=== PATIENT | female | born 1935 | race Caucasian/White ===

== ENCOUNTER 2016-04-15 10:43 | Emergency (ER) | payer MEDICARE ==
[~2016-04-15] VITALS: Ht 137.2 cm; Wt 52.1 kg
[~2016-04-15 10:43] MED LIST: BUPR150T PO; FAMO20TA2 PO; LAMO150 PO; METO25CR PO; VITA20003 PO; Z.0.WALKERFRONT
[2016-04-15 11:21] VITALS: BP 151/81; PULSE 72; RESP 16; TEMP 98.3; O2SAT 100
[2016-04-15] MEDS ORDERED: CETI10CH CHEW (11:40)
[2016-04-15] MEDS ORDERED: VITA200013 PO (11:40)
[2016-04-15] MEDS ORDERED: CITA10TA4 PO (11:40)
[2016-04-15] MEDS ORDERED: PRAV20TA2 PO (11:40)
[2016-04-15] MEDS ORDERED: LISI-519 PO (11:40)
[2016-04-15] MEDS ORDERED: MIRA25TA PO (11:40)
[2016-04-15] MEDS ORDERED: FAMO1TAB37 PO (11:40)
[2016-04-15] MEDS ORDERED: DONE10TA7 PO (11:40)
[2016-04-15] MEDS ORDERED: LAMO150T PO (11:40)
[2016-04-15] MEDS ORDERED: BUPROPION PO (11:40)
[2016-04-15] MEDS ORDERED: METO25TA3 PO (11:40)
[2016-04-15] MEDS ORDERED: SODIUM CHLOR 0.9% 1000 ML INJ 1,000 ML IV SCH (11:45)
[2016-04-15] MEDS ORDERED: ONDANSETRON HCL 4 MG/2 ML VIAL IV PUSH ONE (11:45)
--- NOTE | 2016-04-15 11:47 | PD ---
HPI Chief Complaint: Abdominal Pain Time Seen by Provider: 11:31 Travel History International Travel<30 days: No Contact w/Intl Traveler<30days: No Traveled to known affect area: No History of Present Illness HPI This 81-year-old female presents with complaint of vomiting and mid abdominal pain. She says she has been vomiting off and on for the past week. She has not had any fever. She went to the [facility] in [place] and was diagnosed with a urinary tract infection. She has been on Macrobid. PFSH Past Medical History Blood Disorders: No Anxiety: No Depression: Yes Heart Rhythm Problems: No Cancer: Yes (skin cancer) Cardiovascular Problems: Yes (htn on meds) High Cholesterol: Yes Chemotherapy: No Chest Pain: Yes Congestive Heart Failure: No Endocrine: No Genitourinary: No Hypertension: Yes Immune Disorder: No Musculoskeletal: Yes Neurologic: No Psychiatric: Yes (bipolar, dementia) Reproductive: No Respiratory: No Radiation Therapy: No ?: Not Social History Alcohol Use: No Tobacco Use: No Substance Use: No Allergies-Medications (Allergen,Severity, Reaction): Coded Allergies: Sulfa (Verified Allergy, Severe, 04/15/16) Reported Meds & Prescriptions Reported Meds & Active Scripts Active Reported Lamotrigine 150 Mg Tab 150 Mg PO HS Pravastatin 20 Mg Tab 25 Mg PO HS Metoprolol Tartrate 25 Mg Tab 25 Mg PO HS Donepezil 10 Mg Tab 10 Mg PO HS Myrbetriq (Mirabegron) 25 Mg Tab 25 Mg PO DAILY Cetirizine (Cetirizine HCl) 10 Mg Chew 10 Mg CHEW DAILY Lisinopril 5 Mg Tab 5 Mg PO DAILY Vitamin D (Cholecalciferol) 2,000 Unit Cap 2,000 Units PO DAILY [Bupepropion Hcl] 300 Mg PO DAILY Citalopram (Citalopram Hydrobromide) 10 Mg Tab 10 Mg PO DAILY Pepcid (Famotidine) 20 Mg Tab 20 Mg PO DAILY Review of Systems General / Constitutional: No: Fever, Chills Eyes: No: Diploplia, Blurred Vision HENT: No: Headaches Cardiovascular: No: Chest Pain or Discomfort Respiratory: No: Cough Gastrointestinal: Positive: Nausea, Vomiting, Abdominal Pain Genitourinary: No: Frequency, Dysuria Musculoskeletal: No: Myalgias Physical Exam Narrative GENERAL: Well-developed female SKIN: Warm and dry. HEAD: Atraumatic. Normocephalic. EYES: Pupils equal and round. No scleral icterus. No injection or drainage. ENT: No nasal bleeding or discharge. Mucous membranes pink and moist. NECK: Trachea midline. No JVD. CARDIOVASCULAR: Regular rate and rhythm. No murmur appreciated. RESPIRATORY: No accessory muscle use. Clear to auscultation. Breath sounds equal bilaterally. GASTROINTESTINAL: Abdomen soft, non-tender, nondistended. Hepatic and splenic margins not palpable. MUSCULOSKELETAL: No obvious deformities. No clubbing. No cyanosis. No edema. NEUROLOGICAL: Awake and alert. No obvious cranial nerve deficits. Motor grossly within normal limits. Normal speech. PSYCHIATRIC: Appropriate mood and affect; insight and judgment normal. Data Data Last Documented VS Vital Signs Date Time Temp Pulse Resp B/P Pulse Ox O2 Delivery O2 Flow Rate FiO2 04/15/16 14:35 95 20 115/67 96 04/15/16 11:21 98.3 Orders Complete Blood Count With Diff (04/15/16 11:37) Comprehensive Metabolic Panel (04/15/16 11:37) Lipase (04/15/16 11:37) Urinalysis - C+S If Indicated (04/15/16 11:37) Abdomen, Flat & Upright (04/15/16 11:37) Sodium Chlor 0.9% 1000 Ml Inj (Ns 1000 M (04/15/16 11:45) Ondansetron Inj (Zofran Inj) (04/15/16 11:45) Labs Laboratory Tests Test 04/15/16 04/15/16 11:40 13:30 White Blood Count 6.2 TH/MM3 Red Blood Count 4.26 MIL/MM3 Hemoglobin 11.1 GM/DL Hematocrit 34.9 % Mean Corpuscular Volume 81.8 FL Mean Corpuscular Hemoglobin 26.0 PG Mean Corpuscular Hemoglobin 31.8 % Concent Red Cell Distribution Width 14.2 % Platelet Count 250 TH/MM3 Mean Platelet Volume 7.1 FL Neutrophils (%) (Auto) 66.3 % Lymphocytes (%) (Auto) 22.9 % Monocytes (%) (Auto) 5.5 % Eosinophils (%) (Auto) 4.5 % Basophils (%) (Auto) 0.8 % Neutrophils # (Auto) 4.2 TH/MM3 Lymphocytes # (Auto) 1.4 TH/MM3 Monocytes # (Auto) 0.3 TH/MM3 Eosinophils # (Auto) 0.3 TH/MM3 Basophils # (Auto) 0.0 TH/MM3 CBC Comment DIFF FINAL Differential Comment Sodium Level 141 MEQ/L Potassium Level 3.8 MEQ/L Chloride Level 106 MEQ/L Carbon Dioxide Level 25.9 MEQ/L Anion Gap 9 MEQ/L Blood Urea Nitrogen 21 MG/DL Creatinine 0.95 MG/DL Estimat Glomerular Filtration 57 ML/MIN Rate Random Glucose 89 MG/DL Calcium Level 9.3 MG/DL Total Bilirubin 0.3 MG/DL Aspartate Amino Transf 36 U/L (AST/SGOT) Alanine Aminotransferase 44 U/L (ALT/SGPT) Alkaline Phosphatase 158 U/L Total Protein 7.0 GM/DL Albumin 3.5 GM/DL Lipase 207 U/L Urine Collection Type CLEAN CATCH Urine Color STRAW Urine Turbidity CLEAR Urine pH 6.0 Urine Specific [place] 1.011 Urine Protein NEG mg/dL Urine Glucose (UA) NEG mg/dL Urine Ketones NEG mg/dL Urine Occult Blood SMALL Urine Nitrite NEG Urine Bilirubin NEG Urine Leukocyte Esterase NEG Urine RBC 4-9 /hpf Urine Squamous Epithelial 0-5 /hpf Cells Urine Amorphous Sediment FEW Microscopic Urinalysis Comment CULT NOT INDICATED Urine Collection Time 1330 MDM Medical Decision Making Medical Screen Exam Complete: Yes Emergency Medical Condition: Yes Medical Record Reviewed: Yes Differential Diagnosis Differential includes gastritis, recurrent UTI Narrative Course Exam does not show any focal tenderness or guarding. White count is normal. X- ray shows nonspecific bowel gas pattern. Patient has been given IV fluids and Zofran and says she feels better. She is stable for discharge Diagnosis Primary Impression: Acute gastritis Qualified Code: K29.00 - Acute gastritis without hemorrhage, unspecified gastritis type Additional Instructions: Use Zofran as needed Disposition: 01 DISCHARGE HOME Condition: Stable Cristian Pitts MD Apr 15, 2016 11:47
[2016-04-15 11:58] LABS: AUTOMATED NEUTROPHIL # 4.2 TH/MM3 (1.8-7.7); BASOPHIL % 0.8 % (0.0-2.0); EOSINOPHIL # 0.3 TH/MM3 (0-0.4); EOSINOPHIL % 4.5 % (0.0-4.0); HEMATOCRIT 34.9 % (35.0-46.0); HEMO FLAGS DIFF FINAL; LYMPH % 22.9 % (9.0-44.0); LYMPHOCYTE # 1.4 TH/MM3 (1.0-4.8); MEAN CELL VOLUME 81.8 FL (80.0-100.0); MEAN CORPUSCULAR HGB CONC 31.8 % (32.0-36.0); MONO % 5.5 % (0.0-8.0); NEUT % 66.3 % (16.0-70.0); PLATELET COUNT 250 TH/MM3 (150-450); RED BLOOD COUNT 4.26 MIL/MM3 (4.00-5.30); RED CELL DISTRIBUTION WIDTH 14.2 % (11.6-17.2); WHITE BLOOD COUNT 6.2 TH/MM3 (4.0-11.0)
[2016-04-15 12:06] LABS: CHLORIDE 106 MEQ/L (98-107); POTASSIUM 3.8 MEQ/L (3.5-5.1); SODIUM (NA) 141 MEQ/L (136-145)
[2016-04-15 12:10] LABS: ANION GAP 9 MEQ/L (5-15); BICARBONATE 25.9 MEQ/L (21.0-32.0); BLOOD UREA NITROGEN 21 MG/DL (7-18)
[2016-04-15 12:13] LABS: ALT (GPT) 44 U/L (10-53); AST (GOT) 36 U/L (15-37); GLOMERULAR FILTRATION RATE 57 ML/MIN (>89)
[2016-04-15 12:14] LABS: TOTAL BILIRUBIN ADULT 0.3 MG/DL (0.2-1.0)
[2016-04-15 12:16] LABS: ALKALINE PHOSPHATASE 158 U/L (45-117)
[2016-04-15 12:47] VITALS: BP 125/65; PULSE 86; RESP 20; O2SAT 100
--- NOTE | 2016-04-15 12:59 | RADHPO ---
EXAM DATE/TIME: 04/15/2016 12:24 [facility] COMPARISON: No previous studies available for comparison. INDICATIONS : Abdomen pain , vomiting. MEDICAL HISTORY : None. SURGICAL HISTORY : None. ENCOUNTER: Initial ACUITY: 1 week PAIN SCORE: 2/10 LOCATION: Bilateral upper quadrant and lower quadrant abdomen FINDINGS: There is no evidence of pneumoperitoneum. Intestinal gas pattern is nonspecific and benign with gas a nd stool present in multiple nondilated bowel loops. Scattered flecks of radiodense material are like ly ingested medication. A density over the right upper quadrant may be a slight gallstones. There are degenerative changes in the spine with right convex scoliosis. CONCLUSION: Nonspecific benign abdomen appearance. Dagoberto Sandoval MD on April 15, 2016 at 12:55 Board Certified Radiologist. This report was verified electronically.
[2016-04-15 13:40] VITALS: BP 128/62; PULSE 100; RESP 18; O2SAT 95
[2016-04-15 13:51] LABS: BLOOD, URINE SMALL (NEG); GLUCOSE,URINE NEG (NEG); KETONE, URINE NEG (NEG); NITRITE,URINE NEG (NEG)
[2016-04-15 14:05] LABS: METHOD OF COLLECTION CLEAN CATCH; URINE COLOR STRAW (YELLW/STRAW)
[2016-04-15 14:06] LABS: COMMENT (UR) CULT NOT INDICATED; CULTURE IF INDICATED CULT NOT INDICATED; SQUAMOUS EPITHELIAL CELL URINE 0-5 /hpf (0-5)
[2016-04-15 14:35] VITALS: BP 115/67; PULSE 95; RESP 20; O2SAT 96
[2016-04-15] MEDS ORDERED: ZOFR4TAB3 SL (17:16)
[2016-04-16] MEDS ORDERED: ZOFR4TAB3 SL (09:30)
[2016-04-17] MEDS ORDERED: BUPR300T PO (09:14)
[2016-04-21] MEDS ORDERED: ATOR20TA15 PO (14:54)
[2016-04-21] MEDS ORDERED: GABA600T PO (14:55)
[2016-05-21] MEDS ORDERED: ZOFR4TAB3 SL (12:09)
[2016-07-28] MEDS ORDERED: CETI10CH CHEW (15:12)
[2016-08-09] MEDS ORDERED: CETI10 PO (11:44)
[2016-09-01] MEDS ORDERED: GABA600T PO (16:42)
== END 2016-04-15 15:07 | disposition home or self-care (01) ==
LOC: PHED 10:43
DX: E78.00 Pure hypercholesterolemia, unspecified (principal); I10 Essential (primary) hypertension; K29.00 Acute gastritis without bleeding
CPT/HCPCS: 74020; 80053; 81001; 83690; 85025; 96374; 99284; J2405; J7030

== ENCOUNTER 2016-05-24 11:54 | Emergency (ER) | payer MEDICARE ==
[~2016-05-24] VITALS: Ht 139.7 cm; Wt 47.0 kg
[~2016-05-24 11:54] MED LIST changes: +ATOR20TA15 PO; -BUPR150T PO; +BUPR300T PO; +CETI10CH CHEW; +CITA10TA4 PO; +DONE10TA7 PO; +FAMO1TAB37 PO; -FAMO20TA2 PO; +GABA600T PO; -LAMO150 PO; +LAMO150T PO; +LISI-519 PO; -METO25CR PO; +METO25TA3 PO; +MIRA25TA PO; +VITA200013 PO; -VITA20003 PO; -Z.0.WALKERFRONT; +ZOFR4TAB3 SL
[2016-05-24 12:17] VITALS: BP 140/102; PULSE 107; RESP 16; TEMP 98.2; O2SAT 98
[2016-05-24] MEDS ORDERED: PRAV40TA2 PO (12:33)
[2016-05-24] MEDS ORDERED: ONDANSETRON HCL 4 MG/2 ML VIAL IV PUSH ONE (12:45)
[2016-05-24] MEDS ORDERED: SODIUM CHLOR 0.9% 1000 ML INJ 1,000 ML IV SCH (12:45)
--- NOTE | 2016-05-24 12:56 | PD ---
HPI Chief Complaint: Dizziness Time Seen by Provider: 12:36 Travel History International Travel<30 days: No Contact w/Intl Traveler<30days: No Traveled to known affect area: No History of Present Illness HPI 81-year-old female complains of dizziness, poor appetite, congestion, body ache and nausea. Patient states that the symptoms started a week ago and has been persistent since then. Patient states that she has mild aching headache. Patient denies any visual change. Patient denies any neck pain. Patient denies any chest pain or shortness of breath. Patient denies abdominal pain. Patient states that she had dysuria and frequency for the past several days. Patient denies any focal weakness or numbness of extremity. Patient states that she has chronic aching pain, chest abdomen and back and is not new. PFSH Past Medical History Blood Disorders: No Bipolar Disorder: Yes Anxiety: No Depression: Yes Heart Rhythm Problems: No Cancer: Yes (skin cancer) Cardiovascular Problems: Yes (htn on meds didnt take today) High Cholesterol: Yes Chemotherapy: No Chest Pain: Yes Congestive Heart Failure: No Dementia: Yes Endocrine: No Genitourinary: No Hypertension: Yes Immune Disorder: No Musculoskeletal: Yes Neurologic: No Psychiatric: Yes (bipolar, dementia) Reproductive: No Respiratory: Yes Radiation Therapy: No ?: Not Past Surgical History Other Surgery: No Social History Alcohol Use: No Tobacco Use: No Substance Use: No Allergies-Medications (Allergen,Severity, Reaction): Coded Allergies: Sulfa (Verified Allergy, Severe, 05/24/16) Reported Meds & Prescriptions Reported Meds & Active Scripts Active Macrobid (Nitrofurantoin Monoh/Nitrofur Macro) 100 Mg Cap 100 Mg PO BID Zofran Odt (Ondansetron Odt) 4 Mg Tab 4 Mg SL Q8HR PRN Reported Pravastatin 40 Mg Tab 40 Mg PO DAILY Gabapentin 600 Mg Tab 600 Mg PO HS Atorvastatin (Atorvastatin Calcium) 20 Mg Tab 20 Mg PO HS Bupropion HCl ER 24 HR (Bupropion HCl) 300 Mg Tab 300 Mg PO DAILY Lamotrigine 150 Mg Tab 150 Mg PO HS Metoprolol Tartrate 25 Mg Tab 25 Mg PO HS Donepezil 10 Mg Tab 10 Mg PO HS Myrbetriq (Mirabegron) 25 Mg Tab 25 Mg PO DAILY Cetirizine (Cetirizine HCl) 10 Mg Chew 10 Mg CHEW DAILY Lisinopril 5 Mg Tab 5 Mg PO DAILY Vitamin D (Cholecalciferol) 2,000 Unit Cap 2,000 Units PO DAILY Citalopram (Citalopram Hydrobromide) 10 Mg Tab 10 Mg PO DAILY Pepcid (Famotidine) 20 Mg Tab 20 Mg PO DAILY Review of Systems General / Constitutional: No: Fever Eyes: No: Visual changes HENT: Positive: Headaches, Lightheadedness Cardiovascular: No: Chest Pain or Discomfort Respiratory: No: Shortness of Breath Gastrointestinal: Positive: Nausea, No: Abdominal Pain Genitourinary: Positive: Frequency, Dysuria Musculoskeletal: No: Pain Skin: No Rash Neurologic: No: Weakness Psychiatric: No: Depression Endocrine: No: Polydipsia Hematologic/Lymphatic: No: Easy Bruising Physical Exam Narrative GENERAL: Well-nourished, well-developed patient. SKIN: Warm and dry. HEAD: Normocephalic. EYES: No scleral icterus. No injection or drainage. NECK: Supple, trachea midline. No JVD or lymphadenopathy. CARDIOVASCULAR: Regular rate and rhythm without murmurs, gallops, or rubs. RESPIRATORY: Breath sounds equal bilaterally. No accessory muscle use. GASTROINTESTINAL: Abdomen soft, non-tender, nondistended. MUSCULOSKELETAL: No cyanosis, or edema. BACK: Nontender without obvious deformity. No CVA tenderness. Neurologic exam normal. Data Data Last Documented VS Vital Signs Date Time Temp Pulse Resp B/P Pulse Ox O2 Delivery O2 Flow Rate FiO2 05/24/16 13:04 96 Room Air 05/24/16 12:17 98.2 107 16 140/102 Orders Complete Blood Count With Diff (05/24/16 12:43) Comprehensive Metabolic Panel (05/24/16 12:43) Prothrombin Time / Inr (Pt) (05/24/16 12:43) Act Partial Throm Time (Ptt) (05/24/16 12:43) Urinalysis - C+S If Indicated (05/24/16 12:43) Thyroid Stimulating Hormone (05/24/16 12:43) Influenzae A/B Antigen (05/24/16 12:43) Chest, Single Ap (05/24/16 12:43) Iv Access Insert/Monitor (05/24/16 12:43) Ecg Monitoring (05/24/16 12:43) Oximetry (05/24/16 12:43) Sodium Chlor 0.9% 1000 Ml Inj (Ns 1000 M (05/24/16 12:45) Ondansetron Inj (Zofran Inj) (05/24/16 12:45) Urine Culture (05/24/16 13:34) Ceftriaxone Inj (Rocephin Inj) (05/24/16 14:30) Sodium Chlor 0.9% 1000 Ml Inj (Ns 1000 M (05/24/16 14:30) Labs Laboratory Tests Test 05/24/16 05/24/16 13:00 13:34 White Blood Count 4.7 TH/MM3 Red Blood Count 5.25 MIL/MM3 Hemoglobin 13.9 GM/DL Hematocrit 42.7 % Mean Corpuscular Volume 81.3 FL Mean Corpuscular Hemoglobin 26.4 PG Mean Corpuscular Hemoglobin 32.5 % Concent Red Cell Distribution Width 14.8 % Platelet Count 214 TH/MM3 Mean Platelet Volume 7.4 FL Neutrophils (%) (Auto) 56.0 % Lymphocytes (%) (Auto) 26.8 % Monocytes (%) (Auto) 15.5 % Eosinophils (%) (Auto) 0.7 % Basophils (%) (Auto) 1.0 % Neutrophils # (Auto) 2.7 TH/MM3 Lymphocytes # (Auto) 1.3 TH/MM3 Monocytes # (Auto) 0.7 TH/MM3 Eosinophils # (Auto) 0.0 TH/MM3 Basophils # (Auto) 0.0 TH/MM3 CBC Comment DIFF FINAL Differential Comment Prothrombin Time 10.3 SEC Prothromb Time International 0.9 RATIO Ratio Activated Partial 26.4 SEC Thromboplast Time Sodium Level 141 MEQ/L Potassium Level 3.9 MEQ/L Chloride Level 107 MEQ/L Carbon Dioxide Level 21.6 MEQ/L Anion Gap 12 MEQ/L Blood Urea Nitrogen 28 MG/DL Creatinine 1.40 MG/DL Estimat Glomerular Filtration 36 ML/MIN Rate Random Glucose 96 MG/DL Calcium Level 9.2 MG/DL Total Bilirubin 0.5 MG/DL Aspartate Amino Transf 40 U/L (AST/SGOT) Alanine Aminotransferase 35 U/L (ALT/SGPT) Alkaline Phosphatase 223 U/L Total Protein 7.9 GM/DL Albumin 3.7 GM/DL Thyroid Stimulating Hormone 1.470 uIU/ML 3rd Gen Urine Collection Type VOIDED Urine Color DARK-YELLOW Urine Turbidity CLEAR Urine pH 5.5 Urine Specific [place] 1.025 Urine Protein 100 mg/dL Urine Glucose (UA) NEG mg/dL Urine Ketones 15 mg/dL Urine Occult Blood MOD Urine Nitrite NEG Urine Bilirubin NEG Urine Leukocyte Esterase SMALL Urine RBC 4-9 /hpf Urine WBC 9-14 /hpf Urine WBC Clumps FEW Urine Squamous Epithelial 6-8 /hpf Cells Urine Transitional Epithelial 0-2 /hpf Cells Urine Bacteria FEW /hpf Urine Mucus FEW /lpf Microscopic Urinalysis Comment CULTURE INDICATED MDM Medical Decision Making Medical Screen Exam Complete: Yes Emergency Medical Condition: Yes Interpretation(s) Last Impressions Chest X-Ray 05/24/16 1243 Signed Impressions: Service Date/Time: Tuesday, May 24, 2016 13:05 - CONCLUSION: No acute disease. Simone Yepez MD 1416 p.m. CBC within normal limit. CMP within normal limit. BUN 28. Creatinine 1.4. Alkaline phosphatase 223. UA positive WBC and bacteria. Influenza AB antigen negative Differential Diagnosis Differential diagnosis including viral syndrome, vertigo, UTI, pyelonephritis, electrolyte abnormality, dehydration, sepsis. Narrative Course 81-year-old female with headache, dizziness, congestion, body ache, dysuria and frequency, and nausea. Normal saline solution 1 L IV bolus. Zofran 4 mg IV. Rocephin 1 g IV given. Diagnosis Primary Impression: UTI (urinary tract infection) Qualified Code: N30.00 - Acute cystitis without hematuria Additional Impressions: Viral syndrome Dehydration Renal insufficiency Patient Instructions: General Instructions Additional Instructions: Take medications as directed. Follow-up with personal physician. Encourage by mouth fluid. Return if persistent problem or worse. Med/Other Pt SpecificInfo: Prescription(s) given Scripts Ondansetron Odt (Zofran Odt)4 Mg Tab4 Mg SL Q6HR PRN (Nausea/Vomiting) #10 TAB Prov:Ishaan Garcia MD 05/24/16 Nitrofurantoin Monohydrate Macrocrystals (Macrobid)100 Mg [id number] Mg PO BID #14 CAP Ref 0 Prov:Ishaan Garcia MD 05/24/16 Disposition: 01 DISCHARGE HOME Condition: Stable Ishaan Garcia MD May 24, 2016 12:56
[2016-05-24 13:04] VITALS: O2SAT 96
[2016-05-24 13:12] LABS: AUTOMATED NEUTROPHIL # 2.7 TH/MM3 (1.8-7.7); EOSINOPHIL % 0.7 % (0.0-4.0); HEMATOCRIT 42.7 % (35.0-46.0); HEMO FLAGS DIFF FINAL; LYMPH % 26.8 % (9.0-44.0); LYMPHOCYTE # 1.3 TH/MM3 (1.0-4.8); MEAN CELL VOLUME 81.3 FL (80.0-100.0); MEAN CORPUSCULAR HEMOGLOBIN 26.4 PG (27.0-34.0); MEAN CORPUSCULAR HGB CONC 32.5 % (32.0-36.0); MONO % 15.5 % (0.0-8.0); PLATELET COUNT 214 TH/MM3 (150-450); RED BLOOD COUNT 5.25 MIL/MM3 (4.00-5.30); RED CELL DISTRIBUTION WIDTH 14.8 % (11.6-17.2); WHITE BLOOD COUNT 4.7 TH/MM3 (4.0-11.0)
[2016-05-24 13:21] LABS: CHLORIDE 107 MEQ/L (98-107); POTASSIUM 3.9 MEQ/L (3.5-5.1); SODIUM (NA) 141 MEQ/L (136-145)
[2016-05-24 13:24] LABS: APTT (PATIENT) 26.4 SEC (24.3-30.1); INTERNATIONAL NORMALIZED RATIO 0.9 RATIO; PROTHROMBIN TIME - PATIENT 10.3 SEC (9.8-11.6)
[2016-05-24 13:26] LABS: ANION GAP 12 MEQ/L (5-15); BICARBONATE 21.6 MEQ/L (21.0-32.0); BLOOD UREA NITROGEN 28 MG/DL (7-18)
[2016-05-24 13:29] LABS: ALT (GPT) 35 U/L (10-53); AST (GOT) 40 U/L (15-37); GLOMERULAR FILTRATION RATE 36 ML/MIN (>89)
[2016-05-24 13:30] LABS: TOTAL BILIRUBIN ADULT 0.5 MG/DL (0.2-1.0)
[2016-05-24 13:32] LABS: ALKALINE PHOSPHATASE 223 U/L (45-117)
--- NOTE | 2016-05-24 13:35 | RADHPO ---
EXAM DATE/TIME: 05/24/2016 13:05 [facility] COMPARISON: No previous studies available for comparison. INDICATIONS : Short of Breath MEDICAL HISTORY : None. SURGICAL HISTORY : None. ENCOUNTER: Initial ACUITY: 3 days PAIN SCORE: 0/10 LOCATION: Bilateral chest FINDINGS: A single view of the chest demonstrates the lungs to be symmetrically aerated without evidence of mas s, infiltrate or effusion. Atherosclerotic calcifications are present in the aorta. There are overlyi ng electrocardiogram leads. The cardiomediastinal contours are unremarkable. Osseous structures are intact. CONCLUSION: No acute disease. Simone Yepez MD on May 24, 2016 at 13:33 Board Certified Radiologist. This report was verified electronically.
[2016-05-24 13:57] LABS: GLUCOSE,URINE NEG (NEG); KETONE, URINE 15 mg/dL (NEG); NITRITE,URINE NEG (NEG); PH, URINE 5.5 (5.0-8.5)
[2016-05-24 14:09] LABS: BLOOD, URINE MOD (NEG)
[2016-05-24 14:12] LABS: METHOD OF COLLECTION VOIDED; MUCUS URINE FEW /lpf (OCC); URINE COLOR DARK-YELLOW (YELLW/STRAW)
[2016-05-24 14:14] LABS: BACTERIA, URINE FEW /hpf; COMMENT (UR) CULTURE INDICATED; CULTURE IF INDICATED CULTURE INDICATED; TRANSITIONAL EPI CELLS, URINE 0-2 /hpf
[2016-05-24] MEDS ORDERED: MACR100C2 PO (14:22)
[2016-05-24] MEDS ORDERED: SODIUM CHLOR 0.9% 1000 ML INJ 1,000 ML IV ONE (14:30)
[2016-05-24] MEDS ORDERED: cefTRIAXone INJ 1,000 MG in SODIUM CHLORIDE 0.9% INJ 100 ML IV ONE (14:30)
[2016-05-24] MEDS ORDERED: ZOFR4TAB3 SL (14:36)
[2016-05-24 15:48] VITALS: BP 135/67
[2016-07-28] MEDS ORDERED: CETI10CH CHEW (15:12)
[2016-08-09] MEDS ORDERED: CETI10 PO (11:44)
[2016-09-01] MEDS ORDERED: GABA600T PO (16:42)
== END 2016-05-24 15:50 | disposition home or self-care (01) ==
LOC: PHED 11:54
DX: N30.00 Acute cystitis without hematuria (principal); B34.9 Viral infection, unspecified; E86.0 Dehydration; N28.9 Disorder of kidney and ureter, unspecified; R63.0 Anorexia; M79.1 Myalgia; R11.0 Nausea; R51 Headache; I10 Essential (primary) hypertension; E78.00 Pure hypercholesterolemia, unspecified; F03.90 Unspecified dementia, unspecified severity, without behavioral disturbance, psychotic disturbance, mood disturbance, and anxiety; Z87.39 Personal history of other diseases of the musculoskeletal system and connective tissue; Z86.59 Personal history of other mental and behavioral disorders; Z86.79 Personal history of other diseases of the circulatory system; Z85.828 Personal history of other malignant neoplasm of skin; Z87.09 Personal history of other diseases of the respiratory system
CPT/HCPCS: 71010; 80053; 81001; 84443; 85025; 85610; 85730; 87086; 87804; 96361; 96365; 96375; 99284; J0696; J2405; J7030

== ENCOUNTER 2016-05-27 09:44 | Emergency (ER) | payer MEDICARE ==
[~2016-05-27] VITALS: Ht 144.8 cm; Wt 45.0 kg
[2016-05-27] VITALS (10 sets, daily range): BP systolic 150–208; BP diastolic 70–107; PULSE 72–104; RESP 16–24; TEMP 97.8–98.1; O2SAT 9–99
[~2016-05-27 09:44] MED LIST changes: +MACR100C2 PO; +PRAV40TA2 PO
[2016-05-27] MEDS ORDERED: SODIUM CHLOR 0.9% 1000 ML INJ 1,000 ML IV ONE (11:00)
--- NOTE | 2016-05-27 11:01 | PD ---
HPI Chief Complaint: Medical Clearance Time Seen by Provider: 10:53 Travel History International Travel<30 days: No Contact w/Intl Traveler<30days: No Traveled to known affect area: No History of Present Illness HPI 81-year-old female was brought in by her for confusion, combative, diffuse take her medications, insomnia. Patient's states that the symptoms started about 10 days ago and got worse for the past few days. Patient 's reported no fever, vomiting diarrhea. Patient was seen in emergency room 3 days ago and diagnosis UTI and dehydration and acute kidney injury. Patient was given IV fluid and prescription for Macrodantin. Patient diffuse take the medication since then. Patient denies any headache. Patient states that she has history of chronic chest pain abdominal pain back pain is not new. Patient denies any focal weakness or numbness of extremity. Patient was seen by personal physician and referred to see a psychiatrist however has not seen psychiatrist yet. Patient's states the patient was voicing suicidal ideation at home. Patient has history of hypertension, dyslipidemia, bipolar disorder, dementia. PFSH Past Medical History Blood Disorders: No Bipolar Disorder: Yes Anxiety: No Depression: Yes Heart Rhythm Problems: No Cancer: Yes (skin cancer) Cardiovascular Problems: Yes (htn on meds didnt take today) High Cholesterol: Yes Chemotherapy: No Chest Pain: Yes Congestive Heart Failure: No Dementia: Yes Endocrine: No Genitourinary: No Hypertension: Yes Immune Disorder: No Musculoskeletal: Yes Neurologic: No Psychiatric: Yes (bipolar, dementia) Reproductive: No Respiratory: Yes Radiation Therapy: No Past Surgical History Other Surgery: No Social History Alcohol Use: No Tobacco Use: No Substance Use: No Allergies-Medications (Allergen,Severity, Reaction): Coded Allergies: Sulfa (Verified Allergy, Severe, 05/24/16) Reported Meds & Prescriptions Reported Meds & Active Scripts Active Zofran Odt (Ondansetron Odt) 4 Mg Tab 4 Mg SL Q6HR PRN Macrobid (Nitrofurantoin Monoh/Nitrofur Macro) 100 Mg Cap 100 Mg PO BID Zofran Odt (Ondansetron Odt) 4 Mg Tab 4 Mg SL Q8HR PRN Reported Pravastatin 40 Mg Tab 40 Mg PO DAILY Gabapentin 600 Mg Tab 600 Mg PO HS Atorvastatin (Atorvastatin Calcium) 20 Mg Tab 20 Mg PO HS Bupropion HCl ER 24 HR (Bupropion HCl) 300 Mg Tab 300 Mg PO DAILY Lamotrigine 150 Mg Tab 150 Mg PO HS Metoprolol Tartrate 25 Mg Tab 25 Mg PO HS Donepezil 10 Mg Tab 10 Mg PO HS Myrbetriq (Mirabegron) 25 Mg Tab 25 Mg PO DAILY Cetirizine (Cetirizine HCl) 10 Mg Chew 10 Mg CHEW DAILY Lisinopril 5 Mg Tab 5 Mg PO DAILY Vitamin D (Cholecalciferol) 2,000 Unit Cap 2,000 Units PO DAILY Citalopram (Citalopram Hydrobromide) 10 Mg Tab 10 Mg PO DAILY Pepcid (Famotidine) 20 Mg Tab 20 Mg PO DAILY Review of Systems General / Constitutional: No: Fever Eyes: No: Visual changes HENT: No: Headaches Cardiovascular: No: Chest Pain or Discomfort Respiratory: No: Shortness of Breath Gastrointestinal: No: Abdominal Pain Genitourinary: No: Dysuria Musculoskeletal: No: Pain Skin: No Rash Neurologic: No: Weakness Psychiatric: No: Depression Endocrine: No: Polydipsia Hematologic/Lymphatic: No: Easy Bruising Physical Exam Narrative GENERAL: Well-nourished, well-developed patient. SKIN: Warm and dry. HEAD: Normocephalic. EYES: No scleral icterus. No injection or drainage. NECK: Supple, trachea midline. No JVD or lymphadenopathy. CARDIOVASCULAR: Regular rate and rhythm without murmurs, gallops, or rubs. RESPIRATORY: Breath sounds equal bilaterally. No accessory muscle use. GASTROINTESTINAL: Abdomen soft, non-tender, nondistended. MUSCULOSKELETAL: No cyanosis, or edema. BACK: Nontender without obvious deformity. No CVA tenderness. Neurologic exam: Patient's awake and alert. Patient is oriented to name only. Patient moves all extremity well. No obvious focal neurological deficit. Data Data Last Documented VS Vital Signs Date Time Temp Pulse Resp B/P Pulse Ox O2 Delivery O2 Flow Rate FiO2 05/27/16 11:40 92 18 166/85 98 Room Air 05/27/16 09:47 97.8 Orders Electrocardiogram (05/27/16 10:53) Complete Blood Count With Diff (05/27/16 10:53) Comprehensive Metabolic Panel (05/27/16 10:53) Prothrombin Time / Inr (Pt) (05/27/16 10:53) Act Partial Throm Time (Ptt) (05/27/16 10:53) Urinalysis - C+S If Indicated (05/27/16 10:53) Magnesium (Mg) (05/27/16 10:53) Thyroid Stimulating Hormone (05/27/16 10:53) Phosphorus (Po4) (05/27/16 10:53) Chest, Single Ap (05/27/16 10:53) Iv Access Insert/Monitor (05/27/16 10:53) Ecg Monitoring (05/27/16 10:53) Oximetry (05/27/16 10:53) Sodium Chlor 0.9% 1000 Ml Inj (Ns 1000 M (05/27/16 11:00) Psych Screen (05/27/16 11:04) Labetalol Inj (Trandate Inj) (05/27/16 13:00) Labs Laboratory Tests Test 05/27/16 05/27/16 11:11 11:28 White Blood Count 6.9 TH/MM3 Red Blood Count 5.04 MIL/MM3 Hemoglobin 13.5 GM/DL Hematocrit 40.7 % Mean Corpuscular Volume 80.7 FL Mean Corpuscular Hemoglobin 26.8 PG Mean Corpuscular Hemoglobin 33.1 % Concent Red Cell Distribution Width 14.6 % Platelet Count 243 TH/MM3 Mean Platelet Volume 7.6 FL Neutrophils (%) (Auto) 62.7 % Lymphocytes (%) (Auto) 27.4 % Monocytes (%) (Auto) 8.6 % Eosinophils (%) (Auto) 0.9 % Basophils (%) (Auto) 0.4 % Neutrophils # (Auto) 4.3 TH/MM3 Lymphocytes # (Auto) 1.9 TH/MM3 Monocytes # (Auto) 0.6 TH/MM3 Eosinophils # (Auto) 0.1 TH/MM3 Basophils # (Auto) 0.0 TH/MM3 CBC Comment DIFF FINAL Differential Comment Sodium Level 137 MEQ/L Potassium Level 4.9 MEQ/L Chloride Level 106 MEQ/L Carbon Dioxide Level 22.2 MEQ/L Anion Gap 9 MEQ/L Blood Urea Nitrogen 23 MG/DL Creatinine 0.99 MG/DL Estimat Glomerular Filtration 54 ML/MIN Rate Random Glucose 104 MG/DL Calcium Level 9.8 MG/DL Phosphorus Level 2.2 MG/DL Magnesium Level 2.0 MG/DL Total Bilirubin 0.7 MG/DL Aspartate Amino Transf 44 U/L (AST/SGOT) Alanine Aminotransferase 30 U/L (ALT/SGPT) Alkaline Phosphatase 174 U/L Total Protein 8.0 GM/DL Albumin 3.9 GM/DL Thyroid Stimulating Hormone 1.500 uIU/ML 3rd Gen Urine Color YELLOW Urine Turbidity CLEAR Urine pH 5.5 Urine Specific [place] 1.025 Urine Protein 100 mg/dL Urine Glucose (UA) NEG mg/dL Urine Ketones TRACE mg/dL Urine Occult Blood SMALL Urine Nitrite NEG Urine Bilirubin NEG Urine Urobilinogen LESS THAN 2.0 MG/DL Urine Leukocyte Esterase NEG Urine RBC 4 /hpf Urine WBC 1 /hpf Urine Squamous Epithelial <1 /hpf Cells Urine Mucus FEW /lpf Microscopic Urinalysis Comment CATH-CULT NOT IND MDM Medical Decision Making Medical Screen Exam Complete: Yes Emergency Medical Condition: Yes Interpretation(s) 12:32 PM. Last Impressions Chest X-Ray 05/27/16 1053 Signed Impressions: Service Date/Time: , May 27, 2016 11:19 - CONCLUSION: 1. 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 Jordan Campbell MD 12:32 PM. CBC within normal limit. CMP with BUN at 23. Phosphorus 2.2. AST 44. Alkaline phosphatase 174. UA is negative. Differential Diagnosis Differential diagnosis including electrolyte imbalance, dehydration, UTI, psychosis, schizophrenia, adjustment disorder. Narrative Course 81-year-old female combative behavior, confusion, refusing to take medications, suicidal ideation. Normal saline solution 1 L IV bolus. Labetalol 5 mg IV given. 12:55 PM. Patient is medically cleared for psychiatric evaluation and disposition. Ishaan Garcia MD May 27, 2016 11:01
[2016-05-27 11:36] LABS: AUTOMATED NEUTROPHIL # 4.3 TH/MM3 (1.8-7.7); BASOPHIL % 0.4 % (0.0-2.0); EOSINOPHIL # 0.1 TH/MM3 (0-0.4); EOSINOPHIL % 0.9 % (0.0-4.0); HEMATOCRIT 40.7 % (35.0-46.0); HEMO FLAGS DIFF FINAL; LYMPH % 27.4 % (9.0-44.0); LYMPHOCYTE # 1.9 TH/MM3 (1.0-4.8); MEAN CELL VOLUME 80.7 FL (80.0-100.0); MEAN CORPUSCULAR HEMOGLOBIN 26.8 PG (27.0-34.0); MEAN CORPUSCULAR HGB CONC 33.1 % (32.0-36.0); MONO % 8.6 % (0.0-8.0); NEUT % 62.7 % (16.0-70.0); PLATELET COUNT 243 TH/MM3 (150-450); RED BLOOD COUNT 5.04 MIL/MM3 (4.00-5.30); RED CELL DISTRIBUTION WIDTH 14.6 % (11.6-17.2); WHITE BLOOD COUNT 6.9 TH/MM3 (4.0-11.0)
[2016-05-27 11:41] LABS: BLOOD, URINE SMALL (NEG); COMMENT (UR) CATH-CULT NOT IND; CULTURE IF INDICATED CATH CULTURE NOT IND; GLUCOSE,URINE NEG (NEG); KETONE, URINE TRACE mg/dL (NEG); MUCUS URINE FEW /lpf (OCC); NITRITE,URINE NEG (NEG); PH, URINE 5.5 (5.0-8.5); SQUAMOUS EPITHELIAL CELL URINE <1 /hpf (0-5); URINE COLOR YELLOW (YELLW/STRAW)
--- NOTE | 2016-05-27 11:45 | RADRPT ---
EXAM DATE/TIME: 05/27/2016 11:19 [facility] COMPARISON: CHEST SINGLE AP, May 24, 2016, 13:05. INDICATIONS : Evaluate lung status. Patient being seen for a psych evaluation. MEDICAL HISTORY : Unobtainable. SURGICAL HISTORY : Unobtainable. ENCOUNTER: Initial ACUITY: 1 day PAIN SCORE: 0/10 LOCATION: Bilateral chest FINDINGS: The exam demonstrates prominence of the aortic root suggesting aneurysmal dilation. The heart is norm al in size. The lungs are clear. CONCLUSION: 1. 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 Jordan Campbell MD on May 27, 2016 at 11:43 Board Certified Radiologist. This report was verified electronically.
[2016-05-27 12:09] LABS: ALKALINE PHOSPHATASE 174 U/L (45-117); ALT (GPT) 30 U/L (10-53); ANION GAP 9 MEQ/L (5-15); AST (GOT) 44 U/L (15-37); BICARBONATE 22.2 MEQ/L (21.0-32.0); BLOOD UREA NITROGEN 23 MG/DL (7-18); CHLORIDE 106 MEQ/L (98-107); GLOMERULAR FILTRATION RATE 54 ML/MIN (>89); POTASSIUM 4.9 MEQ/L (3.5-5.1); SODIUM (NA) 137 MEQ/L (136-145); TOTAL BILIRUBIN ADULT 0.7 MG/DL (0.2-1.0)
[2016-05-27 12:58] LABS: APTT (PATIENT) 24.9 SEC (24.3-30.1); INTERNATIONAL NORMALIZED RATIO 0.9 RATIO; PROTHROMBIN TIME - PATIENT 10.4 SEC (9.8-11.6)
[2016-05-27] MEDS ORDERED: LABETALOL HCL 100 MG/20 ML VIAL IV PUSH ONE (13:00)
[2016-05-28 04:06] VITALS: BP 135/66; PULSE 77; RESP 18; O2SAT 98
[2016-05-28 07:30] VITALS: BP 178/85; PULSE 82; RESP 20; O2SAT 97
--- NOTE | 2016-05-28 12:55 | EKG ---
Date Performed: 05/27/2016 Time Performed: 11:34:18 PTAGE: 81 years EKG: Sinus rhythm NONSPECIFIC T-WAVE ABNORMALITY BORDERLINE ECG PREVIOUS TRACING : 05/20/2014 20.54 Since previous tracing, no significant change noted DOCTOR: Ammon Macias Interpretating Date/Time 05/28/2016 12:53:41
--- NOTE | 2016-05-28 14:02 | PD.CONS ---
Provisional Diagnosis Admission Date [place] I. Adjustment disorder with disturbance of conduct, history of bipolar disorder [place] II. Deferred [place] III. GERD, confusion [place] IV. Disruptive behavior in the ER [place] V. 55 History of Present Illness Service Psychiatry Consult Requested By Primary Care Physician No Primary Care Physician HPI The patient is a 81-year-old woman, domiciled with her , with psychiatric history of bipolar disorder, no previous psychiatric hospitalizations, no previous suicidal attempts, she is in Wellbutrin 300, citalopram 10 mg and lamotrigine 150 mg twice a day, who was brought in by her for confusion, combative, diffuse take her medications, insomnia. Patient's states that the symptoms started about 10 days ago and got worse for the past few days. Patient's reported no fever, vomiting diarrhea. Patient was seen in emergency room 3 days ago and diagnosis UTI and dehydration and acute kidney injury. Patient was given IV fluid and prescription for Macrodantin. Patient diffuse take the medication since then. She was consulted to psychiatry due to aggressive behavior in the ER. On psychiatric evaluation this morning patient was found in her bed calm, cooperative and pleasant. She is states that yesterday she was mad with the ER staff because she was not getting the attention that she was needing. She stated "they were not nice with me", but today she says that the staff is better and they have been getting along. She says that she just want to go back home with her and continue her life. At this moment not confusion , delirium, disorientation, memory problems are observed. The patient is fully oriented 3. Patient denies depressive symptoms, denies anxiety, denies visual and auditory hallucinations,, denies suicidal and homicidal ideation. On longitudinal observation in the last 12 hours in the ER, no aggressive behavior , no agitation, no combativeness has been observed or reported. Patient denies the use of alcohol and illicit drugs. Her contacted by phone his stated that he is okay accepting the patient back home and he doesn't have any safety complaining at this moment as long as the patient is medically clear. Review of Systems Constitutional: DENIES: Diaphoretic episodes, Fatigue, Fever, Weight gain, Weight loss, Chills, Dizziness, Change in appetite, Night Sweats Endocrine: DENIES: Abnorml menstrual pattern, Heat/cold intolerance, Polydipsia , Polyuria, Polyphagia Eyes: DENIES: Blurred vision, Diplopia, Eye inflammation, Eye pain, Vision loss , Photosensitivity, Double Vision Ears, nose, mouth, throat: DENIES: Tinnitus, Hearing loss, Vertigo, Nasal discharge, Oral lesions, Throat pain, Hoarseness, Ear Pain, Running Nose, Epistaxis, Sinus Pain, Toothache, Odynophagia Respiratory: DENIES: Apneas, Cough, Snoring, Wheezing, Hemoptysis, Sputum production, Shortness of breath Cardiovascular: DENIES: Chest pain, Palpitations, Syncope, Dyspnea on Exertion , PND, Lower Extremity Edema, Orthopnea, Claudication Gastrointestinal: DENIES: Abdominal pain, Black stools, Bloody stools, Constipation, Diarrhea, Nausea, Vomiting, Difficulty Swallowing, Anorexia Genitourinary: DENIES: Abnormal vaginal bleeding, Dysmenorrhea, Dyspareunia, Sexual dysfunction, Urinary frequency, Urinary incontinence, Urgency, Hematuria , Dysuria, Nocturia, Vaginal discharge Musculoskeletal: DENIES: Joint pain, Muscle aches, Stiffness, Joint Swelling, Back pain, Neck pain Hematologic/lymphatic: DENIES: Bruising, Lymphadenopathy Immunologic/allergic: DENIES: Eczema, Urticaria Neurologic: DENIES: Abnormal gait, Headache, Localized weakness, Paresthesias, Seizures, Speech Problems, Tremor, Poor Balance Psychiatric: DENIES: Anxiety, Confusion, Mood changes, Depression, Hallucinations, Agitation, Suicidal Ideation, Homicidal Ideation, Delusions Past Family Social History Coded Allergies: Sulfa (Verified Allergy, Severe, 05/24/16) Active Scripts Nitrofurantoin Monohydrate Macrocrystals (Macrobid)100 Mg [id number] Mg PO BID #14 CAP Ref 0 Prov:Ishaan Garcia MD 05/24/16 Ondansetron Odt (Zofran Odt)4 Mg Tab4 Mg SL Q8HR PRN (Nausea/Vomiting) #30 TAB Ref 0 Prov:Polly Mcarthur MD 05/21/16 Reported Medications Pravastatin 40 Mg Tab40 Mg PO DAILY #30 TAB Ref 0 05/24/16 Gabapentin 600 Mg [id number] Mg PO HS #30 TAB Ref 0 04/21/16 Atorvastatin 20 Mg Tab20 Mg PO HS #30 TAB Ref 0 04/21/16 Bupropion HCl ER 24 HR 300 Mg [id number] Mg PO DAILY Ref 0 04/17/16 Lamotrigine 150 Mg [id number] Mg PO HS #30 TAB Ref 0 04/15/16 Metoprolol Tartrate 25 Mg Tab25 Mg PO HS #60 TAB Ref 0 04/15/16 Donepezil 10 Mg Tab10 Mg PO HS #30 TAB Ref 0 04/15/16 Mirabegron (Myrbetriq)25 Mg Tab25 Mg PO DAILY #30 TAB Ref 0 04/15/16 Cetirizine 10 Mg Chew10 Mg CHEW DAILY Ref 0 04/15/16 Lisinopril 5 Mg Tab5 Mg PO DAILY #30 TAB Ref 0 04/15/16 Cholecalciferol (Vitamin D)2,000 Unit Cap2,000 Units PO DAILY 04/15/16 Citalopram 10 Mg Tab10 Mg PO DAILY #30 TAB Ref 0 04/15/16 Famotidine (Pepcid)20 Mg Tab20 Mg PO DAILY #60 TAB Ref 0 04/15/16 Discontinued Scripts Ondansetron Odt (Zofran Odt)4 Mg Tab4 Mg SL Q6HR PRN (Nausea/Vomiting) #10 TAB Prov:Ishaan Garcia MD 05/24/16 Ondansetron Odt (Zofran Odt)4 Mg Tab4 Mg SL Q8HR PRN (Nausea/Vomiting) #30 TAB Ref 0 Prov:Polly Mcarthur MD 04/16/16 Family History She denies Social History Patient was born and raised in [place], she has been living in [place] for 13 years, she lives with her in [place], she has 4 kids, her highest level of education is college Physical Exam Vital Signs Vital Signs Date Time Temp Pulse Resp B/P Pulse Ox O2 Delivery O2 Flow Rate FiO2 05/28/16 07:30 82 20 178/85 97 Room Air 05/27/16 19:41 98.1 Mental Status Examination Appearance Elderly woman, [facility], age appearing, good hygiene, calm, cooperative and pleasant Speech: Unremarkable Orientation: x3 Memory: Unremarkable Thought Process: Logical Thought Content: Unremarkable Hallucination Type: None Suicidal Ideation: No Previous Suicide Attempts: No Homicidal Ideation: No Previous Homicide Attempts: No Judgement: WNL Affect: Good Mood: Appropriate Motor Activity: Normal gait Assessment & Plan Problem List: (1) Bipolar disorder ICD Code: F31.9 (2) Adjustment disorder with disturbance of conduct Assessment & Plan: On psychiatric evaluation today the patient does not present any evidence of confusion, delirium, agitation, combativeness, aggressive behavior, paranoia, depression, anxiety, vinod or psychosis. She denies suicidal or homicidal ideation, she denies visual and auditory hallucinations. On conversation patient is pleasant, calm and cooperative, logical and coherent. At this moment the patient does not meet criteria for psychiatric admission. She can continue her current psychotropics for bipolar disorder prescribed by private psychiatrist. Extensive psychoeducation, motivation and support provided. Abreu act will be lifted. ICD Code: F43.24 Assessment & Plan Estimated LOS: days Problem Qualifiers (1) Bipolar disorder: Dipesh Solis MD May 28, 2016 14:02
[2016-07-28] MEDS ORDERED: CETI10CH CHEW (15:12)
[2016-08-09] MEDS ORDERED: CETI10 PO (11:44)
[2016-09-01] MEDS ORDERED: GABA600T PO (16:42)
== END 2016-05-28 12:37 | disposition home or self-care (01) ==
LOC: NEPD 09:44 → NEPA 05-28 12:37
DX: F31.9 Bipolar disorder, unspecified (principal); F43.24 Adjustment disorder with disturbance of conduct; R94.31 Abnormal electrocardiogram [ECG] [EKG]; I10 Essential (primary) hypertension; F03.90 Unspecified dementia, unspecified severity, without behavioral disturbance, psychotic disturbance, mood disturbance, and anxiety; E78.5 Hyperlipidemia, unspecified; R45.851 Suicidal ideations
CPT/HCPCS: 71010; 80053; 81001; 83735; 84100; 84443; 85025; 85610; 85730; 93005; 96361; 96374; 99285; J7030

== ENCOUNTER 2016-06-15 04:02 | Observation (INO) | payer MEDICARE ==
[2016-06-15] VITALS (8 sets, daily range): BP systolic 114–150; BP diastolic 65–76; PULSE 52–64; RESP 16–20; TEMP 96.5–98.2; O2SAT 97–99
[~2016-06-15] VITALS: Ht 144.8 cm; Wt 52.5 kg
[2016-06-15] MEDS ORDERED: SODIUM CHLOR 0.9% 1000 ML INJ 1,000 ML IV SCH (04:21)
--- NOTE | 2016-06-15 04:28 | PD ---
HPI Chief Complaint: abdominal pain Time Seen by Provider: 04:16 Travel History International Travel<30 days: No Contact w/Intl Traveler<30days: No Traveled to known affect area: No History of Present Illness HPI The patient is a 81-year-old female who presents to the emergency department for abdominal pain. The patient states she developed intermittent epigastric abdominal pain that radiates to the back in a bandlike fashion on Tuesday. The patient called her primary physician, Dr. Mcarthur, who is unable to see her in the office and referred her to the emergency department. However, the patient did not present to the emergency department for several days, however, no she continues to have intermittent epigastric abdominal pain. The patient states the pain is sharp, intermittent, lasts 5 minutes, starts in epigastrium and radiates around both sides to the back. She did complain of mild nausea earlier today but denied any vomiting or diarrhea. The patient denies any history of previous abdominal surgeries. The patient denies any upper chest pain, shortness of breath, or diaphoresis. The patient's symptoms are moderate, there are no alleviating or exacerbating factors. The patient does states she was recently treated for urinary tract infection, her symptoms of frequency and urgency have resolved. PFSH Past Medical History Blood Disorders: No Bipolar Disorder: Yes Anxiety: No Depression: Yes Heart Rhythm Problems: No Cancer: Yes (skin cancer) Cardiovascular Problems: Yes (htn on meds didnt take today) High Cholesterol: Yes Chemotherapy: No Chest Pain: Yes Congestive Heart Failure: No Dementia: Yes Diminished Hearing: No Endocrine: No Genitourinary: No Hypertension: Yes Immune Disorder: No Musculoskeletal: Yes Neurologic: No Psychiatric: Yes (bipolar, dementia) Reproductive: No Respiratory: Yes Radiation Therapy: No Past Surgical History Other Surgery: No Social History Alcohol Use: No Tobacco Use: No Substance Use: No Allergies-Medications (Allergen,Severity, Reaction): Coded Allergies: Sulfa (Verified Allergy, Severe, 06/15/16) Reported Meds & Prescriptions Reported Meds & Active Scripts Active Macrobid (Nitrofurantoin Monoh/Nitrofur Macro) 100 Mg Cap 100 Mg PO BID Zofran Odt (Ondansetron Odt) 4 Mg Tab 4 Mg SL Q8HR PRN Reported Pravastatin 40 Mg Tab 40 Mg PO DAILY Gabapentin 600 Mg Tab 600 Mg PO HS Atorvastatin (Atorvastatin Calcium) 20 Mg Tab 20 Mg PO HS Bupropion HCl ER 24 HR (Bupropion HCl) 300 Mg Tab 300 Mg PO DAILY Lamotrigine 150 Mg Tab 150 Mg PO HS Metoprolol Tartrate 25 Mg Tab 25 Mg PO HS Donepezil 10 Mg Tab 10 Mg PO HS Myrbetriq (Mirabegron) 25 Mg Tab 25 Mg PO DAILY Cetirizine (Cetirizine HCl) 10 Mg Chew 10 Mg CHEW DAILY Lisinopril 5 Mg Tab 5 Mg PO DAILY Vitamin D (Cholecalciferol) 2,000 Unit Cap 2,000 Units PO DAILY Citalopram (Citalopram Hydrobromide) 10 Mg Tab 10 Mg PO DAILY Pepcid (Famotidine) 20 Mg Tab 20 Mg PO DAILY Vitamin D2 (Ergocalciferol) 2,000 Unit Tab 2,000 Units PO DAILY Review of Systems Except as stated in HPI: all other systems reviewed are Neg General / Constitutional: No: Fever Cardiovascular: No: Chest Pain or Discomfort Respiratory: No: Shortness of Breath Gastrointestinal: Positive: Nausea, Abdominal Pain, No: Vomiting, Diarrhea Genitourinary: Positive: Other (recently treated for UTI), No: Urgency, Frequency Musculoskeletal: No: Myalgias, Arthralgias Skin: No Rash Neurologic: Positive: Other (history of dementia) Physical Exam Narrative GENERAL: Awake, alert, 81-year-old female who appears her stated age and is in no acute respiratory distress. SKIN: Warm and dry. No stigmata of shingles noted in the mid abdomen or flanks. HEAD: Atraumatic. Normocephalic. EYES: No injection or drainage. ENT: No nasal bleeding or discharge. Mucous membranes pink and moist. NECK: Trachea midline. No JVD. CARDIOVASCULAR: Regular rate and rhythm. No murmur appreciated. RESPIRATORY: No accessory muscle use. Clear to auscultation. Breath sounds equal bilaterally. GASTROINTESTINAL: Abdomen soft, non-tender, nondistended. Negative Ellis's. Negative McBurney's. No rebound tenderness. MUSCULOSKELETAL: No obvious deformities. No clubbing. No cyanosis. No edema. Back: No CVA tenderness. NEUROLOGICAL: Awake and alert. No obvious cranial nerve deficits. Motor grossly within normal limits. Normal speech. Follows simple commands. PSYCHIATRIC: Appropriate mood and affect; insight and judgment normal. Data Data Last Documented VS Vital Signs Date Time Temp Pulse Resp B/P Pulse Ox O2 Delivery O2 Flow Rate FiO2 06/15/16 04:57 98.2 64 20 138/72 98 Orders Complete Blood Count With Diff (06/15/16 04:21) Comprehensive Metabolic Panel (06/15/16 04:21) Lipase (06/15/16 04:21) Lactic Acid (06/15/16 04:21) Urinalysis - C+S If Indicated (06/15/16 04:21) Ct Abd/Pel W/O Iv Contrast (06/15/16 04:21) Iv Access Insert/Monitor (06/15/16 04:21) Ecg Monitoring (06/15/16 04:21) Oximetry (06/15/16 04:21) Sodium Chlor 0.9% 1000 Ml Inj (Ns 1000 M (06/15/16 04:21) Sodium Chloride 0.9% Flush (Ns Flush) (06/15/16 04:30) Troponin I (06/15/16 04:21) Chest, Single Ap (06/15/16 ) Admit Order (Ed Use Only) (06/15/16 05:51) Labs Laboratory Tests Test 06/15/16 06/15/16 06/15/16 04:30 04:45 04:55 White Blood Count 6.1 TH/MM3 Red Blood Count 4.32 MIL/MM3 Hemoglobin 11.3 GM/DL Hematocrit 35.0 % Mean Corpuscular Volume 80.9 FL Mean Corpuscular Hemoglobin 26.1 PG Mean Corpuscular Hemoglobin 32.2 % Concent Red Cell Distribution Width 14.0 % Platelet Count 246 TH/MM3 Mean Platelet Volume 7.4 FL Neutrophils (%) (Auto) 68.5 % Lymphocytes (%) (Auto) 18.2 % Monocytes (%) (Auto) 7.3 % Eosinophils (%) (Auto) 4.9 % Basophils (%) (Auto) 1.1 % Neutrophils # (Auto) 4.2 TH/MM3 Lymphocytes # (Auto) 1.1 TH/MM3 Monocytes # (Auto) 0.4 TH/MM3 Eosinophils # (Auto) 0.3 TH/MM3 Basophils # (Auto) 0.1 TH/MM3 CBC Comment DIFF FINAL Differential Comment Sodium Level 141 MEQ/L Potassium Level 4.9 MEQ/L Chloride Level 104 MEQ/L Carbon Dioxide Level 28.5 MEQ/L Anion Gap 9 MEQ/L Blood Urea Nitrogen 22 MG/DL Creatinine 1.70 MG/DL Estimat Glomerular Filtration 29 ML/MIN Rate Random Glucose 89 MG/DL Calcium Level 8.8 MG/DL Total Bilirubin 0.3 MG/DL Aspartate Amino Transf 52 U/L (AST/SGOT) Alanine Aminotransferase 42 U/L (ALT/SGPT) Alkaline Phosphatase 149 U/L Troponin I LESS THAN 0.02 NG/ML Total Protein 6.8 GM/DL Albumin 3.0 GM/DL Lipase 1682 U/L Urine Collection Type CATH Urine Color YELLOW Urine Turbidity CLEAR Urine pH 7.0 Urine Specific Filion 1.017 Urine Protein NEG mg/dL Urine Glucose (UA) NEG mg/dL Urine Ketones NEG mg/dL Urine Occult Blood TRACE Urine Nitrite NEG Urine Bilirubin NEG Urine Leukocyte Esterase NEG Urine RBC 4-9 /hpf Urine WBC 0-2 /hpf Urine Squamous Epithelial 0-5 /hpf Cells Urine Hyaline Casts 3-5 /lpf Urine Mucus OCC /lpf Microscopic Urinalysis Comment CATH-CULT NOT IND Lactic Acid Level 1.2 mmol/L MDM Medical Decision Making Medical Screen Exam Complete: Yes Emergency Medical Condition: Yes Medical Record Reviewed: Yes Interpretation(s) EKG reveals sinus bradycardia with a heart rate of 59. No ischemic changes noted. Last Impressions Chest X-Ray 06/15/16 0000 Signed Impressions: Service Date/Time: Wednesday, June 15, 2016 04:45 - CONCLUSION: 1. Mild bibasilar atelectatic changes. No confluent infiltrate 2. Borderline prominent but well compensated heart. Obed Pisano MD Laboratory Tests Test 06/15/16 06/15/16 04:30 04:45 White Blood Count 6.1 TH/MM3 Red Blood Count 4.32 MIL/MM3 Hemoglobin 11.3 GM/DL Hematocrit 35.0 % Mean Corpuscular Volume 80.9 FL Mean Corpuscular Hemoglobin 26.1 PG Mean Corpuscular Hemoglobin 32.2 % Concent Red Cell Distribution Width 14.0 % Platelet Count 246 TH/MM3 Mean Platelet Volume 7.4 FL Neutrophils (%) (Auto) 68.5 % Lymphocytes (%) (Auto) 18.2 % Monocytes (%) (Auto) 7.3 % Eosinophils (%) (Auto) 4.9 % Basophils (%) (Auto) 1.1 % Neutrophils # (Auto) 4.2 TH/MM3 Lymphocytes # (Auto) 1.1 TH/MM3 Monocytes # (Auto) 0.4 TH/MM3 Eosinophils # (Auto) 0.3 TH/MM3 Basophils # (Auto) 0.1 TH/MM3 CBC Comment DIFF FINAL Differential Comment Sodium Level 141 MEQ/L Potassium Level 4.9 MEQ/L Chloride Level 104 MEQ/L Carbon Dioxide Level 28.5 MEQ/L Anion Gap 9 MEQ/L Blood Urea Nitrogen 22 MG/DL Creatinine 1.70 MG/DL Estimat Glomerular Filtration 29 ML/MIN Rate Random Glucose 89 MG/DL Calcium Level 8.8 MG/DL Total Bilirubin 0.3 MG/DL Aspartate Amino Transf 52 U/L (AST/SGOT) Alanine Aminotransferase 42 U/L (ALT/SGPT) Alkaline Phosphatase 149 U/L Troponin I LESS THAN 0.02 NG/ML Total Protein 6.8 GM/DL Albumin 3.0 GM/DL Lipase 1682 U/L Urine Collection Type CATH Urine Color YELLOW Urine Turbidity CLEAR Urine pH 7.0 Urine Specific Filion 1.017 Urine Protein NEG mg/dL Urine Glucose (UA) NEG mg/dL Urine Ketones NEG mg/dL Urine Occult Blood TRACE Urine Nitrite NEG Urine Bilirubin NEG Urine Leukocyte Esterase NEG Urine RBC 4-9 /hpf Urine WBC 0-2 /hpf Urine Squamous Epithelial 0-5 /hpf Cells Urine Hyaline Casts 3-5 /lpf Urine Mucus OCC /lpf Microscopic Urinalysis Comment CATH-CULT NOT IND CT of the abdomen and pelvis reveals linear atelectasis or scarring in the right middle lobe and lower lobe and left lingula. Moderately large hiatal hernia with associated atelectatic changes medially in the left base. Cholelithiasis. No dilation of the biliary tree. Differential Diagnosis Differential diagnosis includes peptic ulcer disease, gastritis, pancreatitis, bladder colic, choledocholithiasis, shingles, inferior myocardial infarction, AAA, dissection, nephrolithiasis. Narrative Course IV was established, labs are drawn and sent, and the patient was placed on cardiac telemetry monitoring and continuous pulse oximetry monitoring. The patient was pain-free upon examination, therefore, no initial pain medications or antiemetics were administered. EKG was ordered and interpreted. Chest x- ray was ordered. Lipase was sent to lab. CT of the abdomen and pelvis was ordered. The patient's AST and alkaline phosphatase were minimally elevated, however, lipase was elevated at 1682. CT of the abdomen and pelvis reveals cholelithiasis, however, no dilation of the biliary tree. The patient's LFTs are minimally elevated, patient could have choledocholithiasis, however, noted dilation of the biliary tree, versus idiopathic pancreatitis. Therefore, patient will be admitted and may benefit from ultrasound and/or MRCP for definitive diagnosis. Therefore, the on-call medical service was paged for admission. Physician Communication Physician Communication The on-call medical service was paged for admission. I discussed the patient with Dr. Oliver who agrees with admission. Diagnosis Primary Impression: Acute pancreatitis Qualified Code: K85.90 - Acute pancreatitis, unspecified complication status, unspecified pancreatitis type Additional Impression: Cholelithiasis Qualified Code: K80.20 - Calculus of gallbladder without cholecystitis without obstruction Admitting Information Admitting Physician Requests: Admit Condition: Stable Martinez Best MD Jun 15, 2016 04:28
[2016-06-15] MEDS ORDERED: SODIUM CHLORIDE 0.9% FLUSH 5 ML FLUSH IVF PRN (04:30)
[2016-06-15 04:41] LABS: AUTOMATED NEUTROPHIL # 4.2 TH/MM3 (1.8-7.7); BASOPHIL # 0.1 TH/MM3 (0-0.2); BASOPHIL % 1.1 % (0.0-2.0); EOSINOPHIL # 0.3 TH/MM3 (0-0.4); EOSINOPHIL % 4.9 % (0.0-4.0); LYMPH % 18.2 % (9.0-44.0); LYMPHOCYTE # 1.1 TH/MM3 (1.0-4.8); MEAN CELL VOLUME 80.9 FL (80.0-100.0); MEAN CORPUSCULAR HEMOGLOBIN 26.1 PG (27.0-34.0); MEAN CORPUSCULAR HGB CONC 32.2 % (32.0-36.0); MONO % 7.3 % (0.0-8.0); NEUT % 68.5 % (16.0-70.0); PLATELET COUNT 246 TH/MM3 (150-450); RED BLOOD COUNT 4.32 MIL/MM3 (4.00-5.30); WHITE BLOOD COUNT 6.1 TH/MM3 (4.0-11.0)
[2016-06-15 04:47] LABS: HEMO FLAGS DIFF FINAL
[2016-06-15 04:52] LABS: CHLORIDE 104 MEQ/L (98-107); POTASSIUM 4.9 MEQ/L (3.5-5.1); SODIUM (NA) 141 MEQ/L (136-145)
[2016-06-15 04:52] LABS: BLOOD, URINE TRACE (NEG); GLUCOSE,URINE NEG (NEG); KETONE, URINE NEG (NEG); NITRITE,URINE NEG (NEG)
[2016-06-15 04:55] LABS: ANION GAP 9 MEQ/L (5-15); BICARBONATE 28.5 MEQ/L (21.0-32.0)
[2016-06-15 04:56] LABS: BLOOD UREA NITROGEN 22 MG/DL (7-18)
[2016-06-15 04:58] LABS: ALT (GPT) 42 U/L (10-53); AST (GOT) 52 U/L (15-37); GLOMERULAR FILTRATION RATE 29 ML/MIN (>89)
[2016-06-15 05:00] LABS: TOTAL BILIRUBIN ADULT 0.3 MG/DL (0.2-1.0)
[2016-06-15 05:01] LABS: ALKALINE PHOSPHATASE 149 U/L (45-117)
--- NOTE | 2016-06-15 05:03 | RADHPO ---
EXAM DATE/TIME: 06/15/2016 04:45 [facility] COMPARISON: CHEST SINGLE AP, May 27, 2016, 11:19. INDICATIONS : Patient states chest pains. MEDICAL HISTORY : None. SURGICAL HISTORY : None. ENCOUNTER: Initial ACUITY: 1 day PAIN SCORE: 0/10 LOCATION: Bilateral chest FINDINGS: A single view of the chest demonstrates the lungs to be symmetrically aerated with mild bibasilar keiry ear atelectatic changes. Heart size is borderline prominent but well compensated. No effusions. [place] us structures are intact. CONCLUSION: 1. Mild bibasilar atelectatic changes. No confluent infiltrate 2. Borderline prominent but well compensated heart. Obed Pisano MD on June 15, 2016 at 5:00 Board Certified Radiologist. This report was verified electronically.
[2016-06-15 05:07] LABS: METHOD OF COLLECTION CATH; URINE COLOR YELLOW (YELLW/STRAW)
[2016-06-15 05:08] LABS: SQUAMOUS EPITHELIAL CELL URINE 0-5 /hpf (0-5)
[2016-06-15 05:09] LABS: MUCUS URINE OCC /lpf (OCC)
[2016-06-15 05:11] LABS: COMMENT (UR) CATH-CULT NOT IND; CULTURE IF INDICATED CATH CULTURE NOT IND; WBC, URINE 0-2 /hpf (0-5)
[2016-06-15] MEDS ORDERED: ERGO2000 PO (05:27)
--- NOTE | 2016-06-15 05:46 | RADHPO ---
EXAM DATE/TIME: 06/15/2016 05:15 [facility] COMPARISON: CHEST SINGLE AP, June 15, 2016, 4:45. INDICATIONS : Intermittent epigastric pain radiating into back. ORAL CONTRAST: No oral contrast ingested. RADIATION DOSE: 8.18 CTDIvol (mGy) MEDICAL HISTORY : Hypertension. Dementia. SURGICAL HISTORY : None. ENCOUNTER: Initial ACUITY: 3 days PAIN SCALE: 8/10 LOCATION: Bilateral upper quadrant TECHNIQUE: Volumetric scanning of the abdomen and pelvis was performed. Using automated exposure control and ad justment of the mA and/or kV according to patient size, radiation dose was kept as low as reasonably achievable to obtain optimal diagnostic quality images. FINDINGS: LOWER LUNGS: Linear atelectasis/scarring in the right middle lobe, right lower lobe and left lingula with no confl uent infiltrate. Moderately large hiatal hernia. Perihernia and periaortic atelectatic changes in the left base LIVER: Homogeneous density without lesion. There is no dilation of the biliary tree. Multiple calcified gal lstones in the dependent bladder lumen. SPLEEN: Normal size without lesion. PANCREAS: Within normal limits. KIDNEYS: Normal in size and shape. There is no mass, stone, or hydronephrosis. ADRENAL GLANDS: Within normal limits. VASCULAR: There is no aortic aneurysm. BOWEL/MESENTERY: The stomach, small bowel, and colon demonstrate no acute abnormality. There is no free intraperitone al air or fluid. ABDOMINAL WALL: Within normal limits. RETROPERITONEUM: There is no lymphadenopathy. BLADDER: No wall thickening or mass. REPRODUCTIVE: Within normal limits. INGUINAL: There is no lymphadenopathy or hernia. MUSCULOSKELETAL: Within normal limits for patient age. CONCLUSION: 1. Linear atelectasis or scarring in the right middle and lower lobe and left lingula. 2. Moderately large hiatal hernia with associated atelectatic changes medially in the left base. 3. Cholelithiasis. Obed Pisano MD on June 15, 2016 at 5:40 Board Certified Radiologist. This report was verified electronically.
[2016-06-15] MEDS: SODIUM CHLOR 0.9% 1000 ML INJ 1,000 ML IV SCH ×2 (06:02→14:50)
[2016-06-15] MEDS ORDERED: SODIUM CHLORIDE 0.9% FLUSH 5 ML FLUSH FLUSH PRN (06:15)
[2016-06-15] MEDS ORDERED: ONDANSETRON HCL 4 MG/2 ML VIAL IVP PRN (06:15)
[2016-06-15] MEDS ORDERED: NALOXONE HCL 0.4 MG/ML AMP IV PRN (06:15)
[2016-06-15] MEDS ORDERED: SODIUM CHLORIDE 0.9% FLUSH 5 ML FLUSH FLUSH SCH (09:00)
--- NOTE | 2016-06-15 09:26 | RADHPO ---
EXAM DATE/TIME: 06/15/2016 08:23 [facility] COMPARISON: No previous studies available for comparison. INDICATIONS : Abdominal pain. MEDICAL HISTORY : Hypertension. Skin cancer. Dementia. Bipolar. SURGICAL HISTORY : None. ENCOUNTER: Initial ACUITY: 4-6 days PAIN SCORE: 4/10 LOCATION: Abdomen. MEASUREMENTS: LIVER: 15.6 cm length COMMON DUCT: 4 mm RIGHT KIDNEY: 9.3 x 3.8 x 3.5 cm LEFT KIDNEY: 9.5 x 4.2 x 3.9 cm SPLEEN: 8.7 cm length AORTA: 1.5cm maximal FINDINGS: LIVER: Normal echotexture without focal lesion or ductal dilatation. COMMON DUCT: No intraluminal mass or stone visualized. GALLBLADDER: Contains multiple stones, demonstrates no wall thickening or pericholecystic fluid. PANCREAS: The visualized portions are within normal limits. RIGHT KIDNEY: No hydronephrosis, stone or mass. Borderline echogenic. LEFT KIDNEY: No hydronephrosis, stone or mass. Borderline echogenic. Simple cyst measures 13 x 11 x 10 mm at the upper pole. SPLEEN: No focal lesion. AORTA: Non aneurysmal. IVC: Within normal limits. CONCLUSION: 1. Kidneys are borderline echogenic which can be seen with medical renal disease. 2. Cholelithiasis without gallbladder wall thickening. 3. Left renal cyst. Satinder Mercedes MD on June 15, 2016 at 9:22 Board Certified Radiologist. This report was verified electronically.
[2016-06-15] MEDS ORDERED: ONDANSETRON ODT 4 MG TAB SL PRN (09:45)
[2016-06-15] MEDS ORDERED: CHOLECALCIFEROL (VIT D3) 1000 UNIT TAB PO SCH (10:00)
[2016-06-15] MEDS ORDERED: LISINOPRIL 5 MG TAB PO SCH (10:00)
[2016-06-15] MEDS ORDERED: CITALOPRAM HYDROBROMIDE 20 MG TAB PO SCH (10:00)
[2016-06-15] MEDS ORDERED: FAMOTIDINE 20 MG TAB PO SCH (10:00)
[2016-06-15] MEDS ORDERED: PRAVASTATIN SOD 40 MG TAB PO SCH (10:00)
[2016-06-15] MEDS ORDERED: buPROPion HCL 150 MG EXTENDED RELEASE TAB PO SCH (10:00)
[2016-06-15] MEDS ORDERED: PILL SPLITTER OTHER PRN (10:15)
--- NOTE | 2016-06-15 10:49 | HHI.HP ---
HPI Service [facility] Hospitalists Primary Care Physician Polly Mcarthur MD Admission Diagnosis pancreatitis, cholelithiasis Diagnoses: Chief Complaint: RUQ pain Travel History International Travel<30 Days: No Contact w/Intl Traveler <30 Da: No Traveled to Known Affected Are: No History of Present Illness This is a 81-year-old female with a past medical history significant for hypertension dementia and dyslipidemia who presented to [facility] ED with complaints of right diffuse abdominal pain and been ongoing for the past 4 days. Patient contacted her regular physician Dr. Mcarthur who was unable to see her and recommended that she come to the ED for further evaluation and treatment. Patient describes the pain as constant 6/10 sharp and primarily in the right upper quadrant but occasionally worsened to an 8 or 9 lasting about 5- 10 minutes before dissipating back down to 6 again. Patient denies any associated nausea, vomiting, fever or diarrhea. She denies any aggravating or alleviating symptoms. Specifically she denies that the pain is associated with meals. She does report that she was treated for urinary tract infection 2 weeks ago and completed that treatment about one week ago and denies any ongoing complaints of hematuria, dysuria or urgency. She also denies any complaints of cough, shortness of breath or chest pain. In the ED, her lipase was 1682. Abdominal ultrasound revealed cholelithiasis without gallbladder wall thickening. CT of the abdomen showed cholelithiasis and a moderately large hiatal hernia. Review of Systems Constitutional: DENIES: Fever, Weight gain, Weight loss, Chills, Dizziness Endocrine: DENIES: Polydipsia, Polyuria, Polyphagia Eyes: DENIES: Blurred vision, Diplopia, Eye pain Ears, nose, mouth, throat: DENIES: Nasal discharge, Throat pain, Running Nose Respiratory: DENIES: Cough, Sputum production, Shortness of breath Cardiovascular: DENIES: Chest pain, Palpitations, Dyspnea on Exertion, PND, Lower Extremity Edema, Orthopnea Gastrointestinal: COMPLAINS OF: Abdominal pain (RUQ pain since Tuesday), DENIES : Black stools, Bloody stools, Constipation, Diarrhea, Nausea, Vomiting Genitourinary: COMPLAINS OF: Dysuria (2 weeks ago due to UTI, completed tx one week ago, no complaints presently), DENIES: Urinary frequency, Hematuria Musculoskeletal: DENIES: Back pain, Neck pain Integumentary: COMPLAINS OF: Pruritus (chronic, due to sun over exposure), DENIES: Rash Hematologic/lymphatic: DENIES: Lymphadenopathy Immunologic/allergic: COMPLAINS OF: Eczema (chronic ) Neurologic: COMPLAINS OF: Poor Balance, DENIES: Headache, Localized weakness, Paresthesias, Seizures Psychiatric: DENIES: Anxiety, Confusion, Depression Past Family Social History Past Medical History Hypertension Dementia Dyslipidemia Past Surgical History Patient denies any previous surgical procedures Reported Medications Pravastatin 40 Mg Tab 40 Mg PO DAILY Gabapentin 600 Mg Tab 600 Mg PO HS Atorvastatin (Atorvastatin Calcium) 20 Mg Tab 20 Mg PO HS Bupropion HCl ER 24 HR (Bupropion HCl) 300 Mg Tab 300 Mg PO DAILY Lamotrigine 150 Mg Tab 150 Mg PO HS Metoprolol Tartrate 25 Mg Tab 25 Mg PO HS Donepezil 10 Mg Tab 10 Mg PO HS Myrbetriq (Mirabegron) 25 Mg Tab 25 Mg PO DAILY Cetirizine (Cetirizine HCl) 10 Mg Chew 10 Mg CHEW DAILY Lisinopril 5 Mg Tab 5 Mg PO DAILY Vitamin D (Cholecalciferol) 2,000 Unit Cap 2,000 Units PO DAILY Citalopram (Citalopram Hydrobromide) 10 Mg Tab 10 Mg PO DAILY Pepcid (Famotidine) 20 Mg Tab 20 Mg PO DAILY Vitamin D2 (Ergocalciferol) 2,000 Unit Tab 2,000 Units PO DAILY Allergies: Coded Allergies: Sulfa (Verified Allergy, Severe, 06/15/16) Active Ordered Medications Current Medications Medications (Trade) Dose Ordered Sig/Wendi Route Start Time Stop Time Status Last Admin (NS 1000 ml Inj) 1,000 ml @ 100 mls/hr Q10H IV 06/15/16 06:02 (NS Flush) 2 ml UNSCH PRN FLUSH 06/15/16 06:15 (NS Flush) 2 ml BID FLUSH 06/15/16 09:00 (Zofran Inj) 4 mg Q6H PRN IVP 06/15/16 06:15 (Narcan Inj) 0.4 mg UNSCH PRN IV 06/15/16 06:15 (Wellbutrin Xl 24 Hr) 300 mg DAILY PO 06/15/16 10:00 (ZyrTEC) 10 mg DAILY PO 06/15/16 11:00 (CeleXA) 10 mg DAILY PO 06/15/16 10:00 (Aricept) 10 mg HS PO 06/15/16 21:00 (Pepcid) 20 mg DAILY PO 06/15/16 10:00 (Neurontin) 600 mg HS PO 06/15/16 21:00 (LaMICtal) 150 mg HS PO 06/15/16 21:00 (Prinivil) 5 mg DAILY PO 06/15/16 10:00 (Lopressor) 25 mg HS PO 06/15/16 21:00 (Zofran Odt) 4 mg Q8HR PRN SL 06/15/16 09:45 (Pravachol) 40 mg DAILY PO 06/15/16 10:00 (Vitamin D3) 2,000 units DAILY PO 06/15/16 10:00 Non-Formulary Medication 25 mg DAILY PO 06/15/16 09:45 UNV Family History Significant for mother with heart disease and sister with diabetes Social History Patient denies any previous tobacco use, alcohol consumption or illicit drug use. Patient lives with her Physical Exam Vital Signs Vital Signs Date Time Temp Pulse Resp B/P Pulse Ox O2 Delivery O2 Flow Rate FiO2 06/15/16 08:00 97.2 58 20 140/76 97 06/15/16 07:08 56 16 117/71 99 Room Air 06/15/16 06:23 63 20 134/65 98 06/15/16 05:30 20 06/15/16 05:30 58 20 150/75 98 06/15/16 04:57 98.2 64 20 138/72 98 Physical Exam GENERAL: This is a well-nourished, well-developed patient, in no apparent distress. SKIN: No rashes, ecchymoses or lesions. Cool and dry. HEAD: Atraumatic. Normocephalic. No temporal or scalp tenderness. EYES: Pupils equal round and reactive. Extraocular motions intact. No scleral icterus. No injection or drainage. ENT: Nose without bleeding, purulent drainage or septal hematoma. Throat without erythema, tonsillar hypertrophy or exudate. Uvula midline. Airway patent. NECK: Trachea midline. No JVD or lymphadenopathy. Supple, nontender, no meningeal signs. CARDIOVASCULAR: Regular rate and rhythm without murmurs, gallops, or rubs. RESPIRATORY: Clear to auscultation. Breath sounds equal bilaterally. No wheezes , rales, or rhonchi. GASTROINTESTINAL: Abdomen soft, nondistended. (+)tenderness elicited to palpation over RUQ. No hepato-splenomegaly, or palpable masses. No guarding. MUSCULOSKELETAL: Extremities without clubbing, cyanosis, or edema. No joint tenderness, effusion, or edema noted. No calf tenderness. NEUROLOGICAL: Awake and alert. Cranial nerves II through XII intact. Motor and sensory grossly within normal limits. Five out of 5 muscle strength in all muscle groups. Normal speech. Laboratory Laboratory Tests Test 06/15/16 06/15/16 06/15/16 04:30 04:45 04:55 White Blood Count 6.1 Red Blood Count 4.32 Hemoglobin 11.3 Hematocrit 35.0 Mean Corpuscular Volume 80.9 Mean Corpuscular Hemoglobin 26.1 Mean Corpuscular Hemoglobin 32.2 Concent Red Cell Distribution Width 14.0 Platelet Count 246 Mean Platelet Volume 7.4 Neutrophils (%) (Auto) 68.5 Lymphocytes (%) (Auto) 18.2 Monocytes (%) (Auto) 7.3 Eosinophils (%) (Auto) 4.9 Basophils (%) (Auto) 1.1 Neutrophils # (Auto) 4.2 Lymphocytes # (Auto) 1.1 Monocytes # (Auto) 0.4 Eosinophils # (Auto) 0.3 Basophils # (Auto) 0.1 CBC Comment DIFF FINAL Differential Comment Sodium Level 141 Potassium Level 4.9 Chloride Level 104 Carbon Dioxide Level 28.5 Anion Gap 9 Blood Urea Nitrogen 22 Creatinine 1.70 Estimat Glomerular Filtration 29 Rate Random Glucose 89 Calcium Level 8.8 Total Bilirubin 0.3 Aspartate Amino Transf 52 (AST/SGOT) Alanine Aminotransferase 42 (ALT/SGPT) Alkaline Phosphatase 149 Troponin I LESS THAN 0.02 Total Protein 6.8 Albumin 3.0 Lipase 1682 Urine Collection Type CATH Urine Color YELLOW Urine Turbidity CLEAR Urine pH 7.0 Urine Specific Marcy 1.017 Urine Protein NEG Urine Glucose (UA) NEG Urine Ketones NEG Urine Occult Blood TRACE Urine Nitrite NEG Urine Bilirubin NEG Urine Leukocyte Esterase NEG Urine RBC 4-9 Urine WBC 0-2 Urine Squamous Epithelial 0-5 Cells Urine Hyaline Casts 3-5 Urine Mucus OCC Microscopic Urinalysis Comment CATH-CULT NOT IND Lactic Acid Level 1.2 Result Diagram: 06/15/1642906/15/16429 Imaging Last Impressions Abdomen/Pelvis CT 06/15/16420 Signed Impressions: Service Date/Time: Wednesday, June 15, 2016 05:15 - CONCLUSION: 1. Linear atelectasis or scarring in the right middle and lower lobe and left lingula. 2. Moderately large hiatal hernia with associated atelectatic changes medially in the left base. 3. Cholelithiasis. Obed Pisano MD Chest X-Ray 06/15/16 0000 Signed Impressions: Service Date/Time: Wednesday, June 15, 2016 04:45 - CONCLUSION: 1. Mild bibasilar atelectatic changes. No confluent infiltrate 2. Borderline prominent but well compensated heart. Obed Pisano MD Abdomen Ultrasound 06/15/16 0000 Signed Impressions: Service Date/Time: Wednesday, June 15, 2016 08:23 - CONCLUSION: 1. Kidneys are borderline echogenic which can be seen with medical renal disease. 2. Cholelithiasis without gallbladder wall thickening. 3. Left renal cyst. Satinder Mercedes MD Assessment and Plan Assessment and Plan 81-year-old female with a past medical history significant for hypertension dementia and dyslipidemia who presented to [facility] ED with complaints of right upper quadrant pain and been ongoing for the past 4 days. RUQ pain - Suspected gastroenteritis vs symptomatic cholelithiasis. Asymptomatic at present. Abdominal US and CT scan abd/pelvis reviewed personally revealing cholelithiasis no e/o gallbladder wall thickening. No peripancreatic inflammatory changes noted on CT. Repeat lipase level WNL. Able to tolerate clear liquid diet. Advance diet and observe for any problems. Recommend patient follow up following her discharge with her PCP for possible referral to general surgeon. REZA - IVF resuscitation. Baseline appears to be around 1. Repeat BUN/Cr. Avoid nephrotoxic agents. Repeat creatinine level. Hypertension - Good control at present. Resume home lisinopril and metoprolol dose. Monitor BP and adjust treatment as indicated. Dyslipidemia - Patient to resume home pravastatin dose Dementia and Bipolar d/o - Resume home Aricept, Wellbutrin and Lamictal DVT/GI prophylaxis - SCD/CITLALLI Che Written by Jennifer Stoddard PA-C acting as scribe for Dr. Garcia on 06/15/16 at 14:20. All or portions of this note were transcribed by scribe [[email or web address]]. I, Dr. Chelsey Garcia personally performed the history, physical exam, and medical decision making; and confirmed the accuracy of the information in the transcribed note. Authenticated by Dr. Chelsey Garcia on 06/15/16 at 15:31. Jennifer Stoddard Jun 15, 2016 10:49 Chelsey Garcia MD Jun 15, 2016 15:32
[2016-06-15] MEDS ORDERED: CETIRIZINE HCL 10 MG TAB PO SCH (11:00)
[2016-06-15] MEDS ORDERED: MIRABEGRON 25 MG PO SCH (12:00)
[2016-06-15 14:42] LABS: POTASSIUM 4.1 MEQ/L (3.5-5.1)
--- NOTE | 2016-06-15 15:27 | EKG ---
Date Performed: 06/15/2016 Time Performed: 04:14:04 PTAGE: 81 years EKG: Sinus bradycardia. Normal ECG except for rate PREVIOUS TRACING : 05/27/2016 11.34 Compared to previous tracing, nonspecific T wave zurita ges have resolved. DOCTOR: Nikhil Fletcher Interpretating Date/Time 06/15/2016 15:27:00
--- NOTE | 2016-06-15 15:41 | HHI.DCPOC ---
Discharge Care Plan Diagnosis: (1) Renal insufficiency (2) Dehydration (3) Cholelithiasis (4) Abdominal pain Goals to Promote Your Health * To prevent worsening of your condition and complications * To maintain your health at the optimal level Directions to Meet Your Goals Take your medications as prescribed Follow your dietary instruction Follow activity as directed Keep your appointments as scheduled Take your immunizations and boosters as scheduled If your symptoms worsen call your PCP, if no PCP go to Urgent Care Center or Emergency Room Smoking is Dangerous to Your Health. Avoid second hand smoke Call the 24-hour hour crisis hotline for domestic abuse at Jennifer Stoddard Jun 15, 2016 15:41
[2016-06-15] MEDS ORDERED: GABAPENTIN 300 MG CAP PO SCH (21:00)
[2016-06-15] MEDS ORDERED: DONEPEZIL HCL 5 MG TAB PO SCH (21:00)
[2016-06-15] MEDS ORDERED: METOPROLOL TARTRATE 25 MG TAB PO SCH (21:00)
[2016-06-15] MEDS ORDERED: lamoTRIgine 100 MG TAB PO SCH (21:00)
[2016-07-28] MEDS ORDERED: CETI10CH CHEW (15:12)
[2016-08-09] MEDS ORDERED: CETI10 PO (11:44)
[2016-09-01] MEDS ORDERED: GABA600T PO (16:42)
== END 2016-06-15 18:59 | disposition home or self-care (01) ==
LOC: PHED 04:02 → INTOOBSV 05:52 → PHEDA 05:52 → PH3B 07:29
PROVIDERS: ADMIT Family Medicine; ATTEND Family Medicine
DX: K80.20 Calculus of gallbladder without cholecystitis without obstruction (principal); K44.9 Diaphragmatic hernia without obstruction or gangrene; N28.1 Cyst of kidney, acquired; R10.13 Epigastric pain; I10 Essential (primary) hypertension; E78.00 Pure hypercholesterolemia, unspecified; Z85.828 Personal history of other malignant neoplasm of skin
CPT/HCPCS: 71010; 74176; 76700; 80053; 81001; 83605; 83690; 84484; 85025; 93005; 97162; 99285; G0378; G8987; G8988; J7030; 80048